=== PATIENT | female | born 1980 | race Caucasian/White ===

== ENCOUNTER 2021-08-09 06:25 | Inpatient (IN) ==
[2021-08-09] MEDS ORDERED: ANCEF VIAL 1 GRAM ONE (06:41)
[2021-08-09] MEDS ORDERED: D5 1/2 NS 1,000 ML 1,000 ML IV ONE (06:42)
[2021-08-09] MEDS ORDERED: NS 100 ML IV 100 ML ONE (06:42)
[2021-08-09 06:54] VITALS: BMI 43.2
[2021-08-09] MEDS ORDERED: BETADINE SOLN ONE (07:07)
[2021-08-09] MEDS ORDERED: FENTANYL VIAL INJ 100 mcg ONE (07:12)
[2021-08-09] MEDS ORDERED: VERSED ONE (07:13)
[2021-08-09] MEDS ORDERED: ZOFRAN INJ 4 MG VIAL ONE (07:15)
[2021-08-09] MEDS ORDERED: TORADOL 30 MG VIAL ONE (07:15)
[2021-08-09] MEDS ORDERED: PEPCID 20 MG VIAL ONE (07:15)
[2021-08-09] MEDS ORDERED: ROBINUL ONE (07:15)
[2021-08-09] MEDS ORDERED: DECADRON INJ ONE (07:15)
[2021-08-09] MEDS ORDERED: BRIDION ONE (07:16)
[2021-08-09] MEDS ORDERED: DIPRIVAN VIAL 20 ML ONE (07:16)
[2021-08-09] MEDS ORDERED: XYLOCAINE 2 % (PLAIN) ONE (07:17)
[2021-08-09] MEDS ORDERED: OFIRMEV IV 1000 MG VIAL 1,000 MG/100 ML VIAL IV ONE (07:17)
[2021-08-09] MEDS ORDERED: ZEMURON 50 MG VIAL ONE (07:19)
[2021-08-09] MEDS ORDERED: KETAMINE HCL ONE (07:25)
[2021-08-09] MEDS ORDERED: DILAUDID INJ ONE (08:32)
[2021-08-09] MEDS ORDERED: ProvayBLUE 0.5% ONE (08:49)
[2021-08-09] MEDS ORDERED: HESPAN IV IN NS 500 ML IV ONE (09:02)
[2021-08-09] MEDS ORDERED: BENADRYL INJ 50 MG VIAL IVP PRN ×2 (09:55→11:18)
[2021-08-09] MEDS ORDERED: BARHEMSYS INJ IVP PRN (09:55)
[2021-08-09] MEDS ORDERED: DILAUDID INJ IVP PRN (09:55)
[2021-08-09] MEDS ORDERED: PHENERGAN INJ 25 MG IM PRN ×2 (09:55→17:08)
[2021-08-09] MEDS ORDERED: ANCEF VIAL 1 GRAM IVP ONE (11:18)
[2021-08-09] MEDS ORDERED: ZOFRAN INJ 4 MG VIAL IVP PRN (11:18)
[2021-08-09] MEDS ORDERED: D5 1/2 NS 1,000 ML 1,000 ML IV SCH (11:18)
[2021-08-09] MEDS ORDERED: MORPHINE SULFATE PCA 30 MG IVP PRN (11:18)
[2021-08-09] MEDS ORDERED: TORADOL 30 MG VIAL IVP PRN (11:18)
[2021-08-09 11:23] LABS: BILIRUBIN,URINE NEGATIVE (NEGATIVE); BLOOD/HEMOGLOBIN,URINE 2+ (NEGATIVE); GLUCOSE, URINE NEGATIVE (NEGATIVE); KETONES,URINE NEGATIVE (NEGATIVE); LEUKOCYTE ESTERASE ,URINE 1+ (NEGATIVE); NITRITES,URINE NEGATIVE (NEGATIVE); PROTEIN,URINE 3+ (NEGATIVE); UROBILINOGEN,URINE NORMAL (NORMAL)
[2021-08-09 11:24] LABS: APPEARANCE,URINE CLEAR (CLEAR); COLOR,URINE GREEN (YELLOW)
[2021-08-09 11:34] LABS: BACTERIA,URINE NEGATIVE /HPF (NEGATIVE); HYALINE CASTS, URINE FEW /LPF (NEGATIVE); SQUAMOUS EPITHELIAL CELL,UR RARE /HPF (NEGATIVE)
[2021-08-09] MEDS: D5 1/2 NS 1,000 ML 1,000 ML IV SCH ×2 (12:12→19:38)
[2021-08-10] MEDS: D5 1/2 NS 1,000 ML 1,000 ML IV SCH ×5 (04:45→22:06)
[2021-08-10 05:01] LABS: BLOOD UREA NITROGEN 5 mg/dL (7-18); CALCIUM 7.6 mg/dL (8.5-10.1); CARBON DIOXIDE 27.4 mmol/L (21-32); CHLORIDE 102 mmol/L (98-107); COR NA(FOR HYPERGLY) 136 mmol/L (136-145); CREATININE 0.62 mg/dL (0.55-1.02); SODIUM 135 mmol/L (136-145); eGFR NON BLACK RACES > 60 (>60)
[2021-08-10 05:03] LABS: BASOPHILS % (AUTO) 0.2 % (0.2-1.0); EOSINOPHILS % (AUTO) 0.1 % (0.9-2.9); HEMOGLOBIN 8.5 g/dL (12.0-16.0); LYMPHOCYTES % (AUTO) 5.9 % (21.0-51.0); MEAN CORPUSCULAR HEMOGLOBIN 20.2 pg (27.0-34.0); MEAN CORPUSCULAR HGB CONC 30.5 g/dL (33.0-35.0); MEAN CORPUSCULAR VOLUME 66.3 fL (80.0-100.0); MEAN PLATELET VOLUME 9.1 fL (7.4-11.0); MONOCYTES # (AUTO) 1.4 x10^3/uL (0.3-0.8); MONOCYTES % (AUTO) 8.3 % (0.0-13.0); NEUTROPHILS # (AUTO) 14.6 x10^3/uL (2.2-4.8); NEUTROPHILS % (AUTO) 85.5 % (42.0-75.0); RED BLOOD COUNT 4.23 X10^6/uL (3.5-5.4); RED CELL DISTRIBUTION WIDTH 28.3 % (11.6-16.5); WHITE BLOOD COUNT 17.1 X10^3/uL (3.6-10.0)
[2021-08-10 06:05] LABS: PLATELET MORPHOLOGY COMMENT NORMAL (NORMAL)
[2021-08-10 06:06] LABS: ANISOCYTOSIS 3+; HYPOCHROMASIA 1+; MICROCYTOSIS 1+; OVALOCYTES PRESENT
[2021-08-10] MEDS ORDERED: COLACE CAP 100 MG PO ONE (07:44)
[2021-08-10] MEDS ORDERED: ESTRACE ONE (07:44)
[2021-08-10] MEDS: COLACE CAP 100 MG PO SCH ×2 (08:02→20:57)
[2021-08-10] MEDS: ESTRACE PO SCH (08:03)
[2021-08-10] MEDS: PERCOCET TAB 5/325 MG PO PRN ×3 (08:03→19:14)
[2021-08-10] MEDS ORDERED: BACTROBAN TOPICAL OINT ONE (12:44)
[2021-08-10] MEDS: BACTROBAN TOPICAL OINT TOP SCH ×2 (13:23→21:08)
[2021-08-10] MEDS: MOTRIN TAB 800 MG PO PRN (22:07)
[2021-08-11] MEDS: D5 1/2 NS 1,000 ML 1,000 ML IV SCH ×2 (04:00→05:18)
[2021-08-11 04:56] LABS: BASOPHILS % (AUTO) 0.5 % (0.2-1.0); EOSINOPHILS # (AUTO) 0.3 x10^3/uL (0.0-0.2); EOSINOPHILS % (AUTO) 3.2 % (0.9-2.9); HEMATOCRIT 26.5 % (36.0-47.0); HEMOGLOBIN 8.2 g/dL (12.0-16.0); LYMPHOCYTES # (AUTO) 2.2 X10^3/uL (1.3-2.9); LYMPHOCYTES % (AUTO) 21.6 % (21.0-51.0); MEAN CORPUSCULAR HEMOGLOBIN 20.6 pg (27.0-34.0); MEAN CORPUSCULAR VOLUME 66.4 fL (80.0-100.0); MEAN PLATELET VOLUME 8.9 fL (7.4-11.0); MONOCYTES # (AUTO) 0.8 x10^3/uL (0.3-0.8); MONOCYTES % (AUTO) 8.2 % (0.0-13.0); NEUTROPHILS # (AUTO) 6.7 x10^3/uL (2.2-4.8); NEUTROPHILS % (AUTO) 66.5 % (42.0-75.0); RED BLOOD COUNT 3.99 X10^6/uL (3.5-5.4)
[2021-08-11 05:09] LABS: ALANINE AMINOTRANSFERASE 17 Units/L (12-78); ALBUMIN 2.4 g/dL (3.4-5.0); ALKALINE PHOSPHATASE 85 Units/L (46-116); ASPARTATE AMINO TRANSFERASE 16 Units/L (15-37); BLOOD UREA NITROGEN 4 mg/dL (7-18); CALCIUM 7.7 mg/dL (8.5-10.1); CARBON DIOXIDE 26.7 mmol/L (21-32); CHLORIDE 106 mmol/L (98-107); CREATININE 0.61 mg/dL (0.55-1.02); SODIUM 138 mmol/L (136-145); TOTAL PROTEIN 5.7 g/dL (6.4-8.2); eGFR NON BLACK RACES > 60 (>60)
[2021-08-11 05:17] LABS: PLATELET MORPHOLOGY COMMENT NORMAL (NORMAL)
[2021-08-11] MEDS: BACTROBAN TOPICAL OINT TOP SCH (05:17)
[2021-08-11 05:18] LABS: ANISOCYTOSIS 3+; HYPOCHROMASIA 2+; MICROCYTOSIS 1+; OVALOCYTES PRESENT
[2021-08-11] MEDS: COLACE CAP 100 MG PO SCH (08:19)
[2021-08-11] MEDS: ESTRACE PO SCH (08:19)
[2021-08-11] MEDS: MOTRIN TAB 800 MG PO PRN (08:19)
[2021-08-11 11:45] VITALS: BP 142/70
== END 2021-08-11 09:20 | disposition home or self-care (01) | DRG 743 ==
LOC: MED/SURG 06:25
PROVIDERS: ADMIT Specialist; ATTEND Specialist
DX: N92.5 Other specified irregular menstruation; N94.4 Primary dysmenorrhea; R10.2 Pelvic and perineal pain; D25.2 Subserosal leiomyoma of uterus